=== PATIENT | female | born 1980 | race Caucasian/White ===

== ENCOUNTER 2018-06-05 02:27 | Emergency (ER) | payer MEDICAID ==
[~2018-06-05] VITALS: Ht 162.6 cm; Wt 75.0 kg
[2018-06-05] MEDS ORDERED: MORPHINE SULFATE 4 MG/ML CPJ (NOT FOR IM USE) IV STA (02:45)
[2018-06-05] MEDS ORDERED: FAMOTIDINE 20MG/2ML VIAL IV STA (02:45)
[2018-06-05] MEDS ORDERED: SODIUM CHLORIDE 0.9% 1,000 ML IV ONE (02:45)
[2018-06-05 03:26] LABS: BASOPHILS % 0.6 % (0.0-2.0); EOSINOPHILS % 5.1 % (0.0-5.0); HEMATOCRIT. 37.2 % (36.0-48.0); HEMOGLOBIN. 12.6 g/dL (12.0-16.0); LYMPHOCYTES % 13.7 % (20.0-50.0); MEAN CORPUSCULAR HEMOGLOBIN 29.4 pg (28.0-32.0); MEAN CORPUSCULAR VOLUME 86.4 fL (81.0-99.0); NEUTROPHILS % 73.6 % (40.0-76.0); PLATELET 229 x1000/uL (130-400); RED CELL DISTRIBUTION WIDTH 12.9 % (11.6-14.6)
[2018-06-05 03:35] LABS: CHLORIDE 109 mEq/L (98-107)
[2018-06-05 03:39] LABS: ETHANOL BLOOD < 10 mg/dL
[2018-06-05 03:41] LABS: PROTHROMBIN TIME 10.1 sec (9.4-11.6)
[2018-06-05 03:46] LABS: B-HCG QUANTITATIVE 312 mIU/mL (<3)
[2018-06-05 04:30] LABS: CLARITY URINE CLEAR (CLEAR); COLOR URINE YELLOW (YELLOW); KETONES URINE NEGATIVE (NEGATIVE); LEUKOCYTE ESTERASE URINE 2+ (NEGATIVE); NITRITE URINE NEGATIVE (NEGATIVE); OCCULT BLOOD URINE 1+ (NEGATIVE); PROTEIN URINE NEGATIVE (NEGATIVE); SPECIFIC GRAVITY URINE 1.006 (1.005-1.030); UROBILINOGEN URINE 0.2 E.U./dL (0.2-1.0)
[2018-06-05] MEDS ORDERED: CEFTRIAXONE 1 G PREMIX 50 ML IV SCH (05:49)
[2018-06-05 06:35] VITALS: BP 106/69
[2018-06-05 06:55] LABS: *BARBITURATES SCREEN URINE NEGATIVE (NEGATIVE)
[2018-06-05 06:56] LABS: *BENZODIAZEPINES SCREEN URINE NEGATIVE (NEGATIVE); *COCAINE SCREEN URINE NEGATIVE (NEGATIVE); METHADONE URINE SCREEN NEGATIVE (NEGATIVE)
[2018-06-05 06:57] LABS: CANNABINOID URINE SCREEN NEGATIVE (NEGATIVE); OPIATES URINE SCREEN NEGATIVE (NEGATIVE); PHENCYCLIDINE URINE SCREEN NEGATIVE (NEGATIVE)
[2018-06-05 06:59] LABS: *AMPHETAMINES SCREEN URINE NEGATIVE (NEGATIVE)
== END 2018-06-05 06:35 | disposition home or self-care (01) ==
LOC: ER 02:27
DX: N39.0 Urinary tract infection, site not specified (principal)
CPT/HCPCS: 36415; 74176; 80053; 80305; 81003; 81025; 83605; 83690; 84702; 85025; 85610; 87086; 96365; 96375; 99285; G0482; J0696; J2270; J3490; J7030; Z7610

== ENCOUNTER 2023-07-09 17:45 | Emergency (ER) | payer MEDICAID ==
[~2023-07-09] VITALS: Ht 162.6 cm; Wt 63.0 kg
[2023-07-09 17:51] VITALS: TEMP 98.2; O2SAT 99
[2023-07-09 18:16] LABS: BASOPHILS % 0.5 % (0.0-2.0); EOSINOPHILS % 3.1 % (0.0-5.0); HEMATOCRIT. 40.3 % (36.0-48.0); HEMOGLOBIN. 13.6 g/dL (12.0-16.0); MEAN CORPUSCULAR HEMOGLOBIN 29.3 pg (28.0-32.0); MEAN CORPUSCULAR HGB CONC 33.8 g/dL (31.0-37.0); MEAN CORPUSCULAR VOLUME 86.9 fL (81.0-99.0); MEAN PLATELET VOLUME 10.1 fl (7.4-10.4); MONOCYTES % 8.4 % (2.0-8.0); PLATELET 218 x1000/uL (130-400); RED BLOOD CELL COUNT 4.64 mill/uL (4.2-5.4); RED CELL DISTRIBUTION WIDTH 13.2 % (11.6-14.6); WHITE BLOOD COUNT 7.2 x1000/uL (4.5-11.0)
[2023-07-09 18:24] LABS: CHLORIDE 104 mEq/L (98-107); INDEX HEMOLYSI 1 (1-3); INDEX ICTERIC 1 (1-4); INDEX LIPEMIC 1 (1-3); POTASSIUM 3.9 mEq/L (3.5-5.1); SODIUM 137 mEq/L (136-145)
[2023-07-09 18:27] LABS: CALCIUM 9.8 mg/dL (8.5-10.1); PARTIAL THROMBOPLASTIN TIME 28.3 sec (23.4-31.0)
[2023-07-09 18:28] LABS: HCG SCREEN NEGATIVE
[2023-07-09 18:35] LABS: ALANINE AMINOTRANSFERASE 40 IU/L (13-61); ALBUMIN 4.2 g/dL (3.4-5.0); ASPARTATE AMINOTRANSFERASE 16 IU/L (15-37); BILIRUBIN TOTAL 0.3 mg/dL (0.1-1.0); CARBON DIOXIDE 27 mEq/L (21-32); CREATININE 0.8 mg/dL (0.6-1.3); GLUCOSE 134 mg/dL (70-105); PROTEIN TOTAL 8.4 g/dL (6.0-8.3); TROPONIN I HIGH SENSITIVITY 4 ng/L (<54); UREA NITROGEN BLOOD 17 mg/dL (7-21)
[2023-07-09] MEDS ORDERED: IBUPROFEN 600MG TABLET PO ONE (23:00)
[2023-07-09 23:15] VITALS: BP 120/84; PULSE 82; RESP 18
== END 2023-07-09 23:17 | disposition home or self-care (01) ==
LOC: ER 17:45
DX: R07.89 Other chest pain (principal)
CPT/HCPCS: 36415; 71045; 80053; 84484; 84703; 85025; 93005; 99285